=== PATIENT | female | born 1940 | race Caucasian/White ===

== ENCOUNTER 2017-09-12 14:47 | Outpatient (CLI) | payer MEDICARE, BC | END 2017-09-12 14:48 | disposition home or self-care (01) | LOC: BICULT 14:47 → MERGE 14:47 → BICULT 14:48 | PROVIDERS: ATTEND Physician Assistant | DX: R22.2 Localized swelling, mass and lump, trunk (principal) | CPT/HCPCS: 76999 ==

== ENCOUNTER 2018-01-11 15:11 | Emergency (ER) | payer MEDICARE, BC ==
--- NOTE | 2018-01-11 15:54 | RAD ---
THREE VIEWS LEFT SHOULDER: Date: 01-11-18 History: Injury to left shoulder after a fall. FINDINGS: There is evidence of a fracture involving the proximal left humerus. This fracture involves the great er tuberosity but also probably involves the left humeral neck. There is no evidence of a dislocation . The coracoclavicular and acromioclavicular distances are within normal limits. No other osseous abn ormality. IMPRESSION: Fracture involving the left greater tuberosity. There is also probable fracture extending through the neck of the left humerus. POS: [facility]
[2018-01-11] MEDS ORDERED: HYDROcodone/Acetaminophen 5/325 mg Tablet ONE (16:51)
--- NOTE | 2018-01-11 17:31 | CT ---
CT HEAD NONCONTRAST: 01/11/18 HISTORY: Fall. Head injury. FINDINGS: No comparison. There is no evidence of acute intracranial hemorrhage or infarct. Diffuse cortical atr ophy results in prominence of the CSF anterior to the frontal lobes. This is symmetric. No mass effec t or shift of midline structures. The visualized paranasal sinuses remain well aerated. IMPRESSION: No acute intracranial abnormalities are demonstrated. POS: [facility]
== END 2018-01-11 18:20 | disposition home or self-care (01) ==
LOC: ERS 15:11
DX: S42.252A Displaced fracture of greater tuberosity of left humerus, initial encounter for closed fracture (principal); E03.9 Hypothyroidism, unspecified; E78.5 Hyperlipidemia, unspecified; Z79.899 Other long term (current) drug therapy; W01.0XXA Fall on same level from slipping, tripping and stumbling without subsequent striking against object, initial encounter
CPT/HCPCS: 70450

== ENCOUNTER 2018-08-29 08:57 | Outpatient (CLI) | payer MEDICARE, BC ==
--- NOTE | 2018-08-29 10:22 | MMO ---
Bilateral MAMMO Bilat Screen [facility]. CLINICAL HISTORY: Patient is 78 years old and is seen for screening. The patient has the following family history of breast cancer: sister, at age 73. The patient has a history of bilateral Implants at age 45 - saline, bilateral Mastectomy at age 35 - benign and bilateral Implants at age 35 - silicone gel. VIEWS: The views performed were: bilateral craniocaudal with tomosynthesis; bilateral mediolateral oblique with tomosynthesis; and bilateral Implant displaced. FILMS COMPARED: The present examination has been compared to prior imaging studies performed at [facility] on 12/31/2011, 05/31/2015, 06/06/2015, 06/29/2016 and 07/01/2017. MAMMOGRAM FINDINGS: There are scattered fibroglandular densities. There are stable benign appearing calcifications seen in both breasts. There are no suspicious masses, suspicious calcifications, or new areas of architectural distortion. IMPRESSION: THERE IS NO MAMMOGRAPHIC EVIDENCE OF MALIGNANCY. A ROUTINE FOLLOW-UP MAMMOGRAM IN 1 YEAR IS RECOMMENDED. THE RESULTS OF THIS EXAM WERE SENT TO THE PATIENT. ACR BI-RADS Category 2 - Benign finding MAMMOGRAPHY NOTE: 1. A negative mammogram report should not delay a biopsy if a dominant of clinically suspicious mass is present. 2. Approximately 10% to 15% of breast cancers are not detected by mammography. 3. Adenosis and dense breasts may obscure an underlying neoplasm.
== END 2018-08-29 08:58 | disposition home or self-care (01) ==
LOC: BICMAMMO 08:57
PROVIDERS: ATTEND Family Medicine
DX: Z12.31 Encounter for screening mammogram for malignant neoplasm of breast (principal)
CPT/HCPCS: 77063; 77067

== ENCOUNTER 2019-01-02 09:07 | Outpatient (CLI) | payer MEDICARE, BC ==
--- NOTE | 2019-01-02 12:27 | MRI ---
MRI CERVICAL SPINE WITHOUT CONTRAST: COMPARISON: 10/21/2017. HISTORY: Cervical radiculopathy. Neck pain. COMPARISON: 10/21/2017. FINDINGS: Appropriate T1 marrow signal intensity of the cervical vertebrae. Cervical spine vertebral body heig ht is maintained. There is no fracture. No significant STIR hyperintensity to suggest vertebral bod y edema or ligamentous injury. Visualized brain parenchyma, cervicomedullary junction, cervical cord, and the upper thoracic cord ortega ve a normal size and signal intensity. C2-C3: No significant central canal stenosis or significant neural foraminal narrowing. C3-C4: No significant central canal stenosis or significant neural foraminal narrowing. C4-C5: Moderate loss of disk space height. Broad-based disk-osteophyte complex effaces the ventral subarachnoid space. There is mild deformity of the cervical cord, without T2 hyperintensity in the c ord. The degree of central canal stenosis is similar to the previous examination. Mild right forami nal narrowing. No uncovertebral hypertrophy. Mild left foraminal narrowing due to uncovertebral hyp ertrophy. C6-C7: There is a broad-based disk-osteophyte complex that abuts the thecal sac. Ventral subarachno id space is still maintained. Minimal flattening of the ventral cord, without cord hyperintensity. Mild central canal stenosis. Mild bilateral foraminal narrowing due to uncovertebral hypertrophy. C6-C7: No significant central canal stenosis or foraminal narrowing. C7-T1: No significant central canal stenosis or foraminal narrowing. IMPRESSION: Degenerative change of the cervical spine as described above. When compared to the previous examination, there is no significant change. POS: [facility]
== END 2019-01-02 09:08 | disposition home or self-care (01) ==
LOC: BICMRI 09:07
PROVIDERS: ATTEND Surgery
DX: M50.10 Cervical disc disorder with radiculopathy, unspecified cervical region (principal); M47.22 Other spondylosis with radiculopathy, cervical region; M48.02 Spinal stenosis, cervical region; M77.8 Other enthesopathies, not elsewhere classified
CPT/HCPCS: 72141

== ENCOUNTER 2019-09-18 09:23 | Outpatient (CLI) | payer MEDICARE, BC ==
--- NOTE | 2019-09-18 10:50 | MMO ---
Bilateral MAMMO Bilat Screen [facility]. CLINICAL HISTORY: Patient is 79 years old and is seen for screening. The patient has the following family history of breast cancer: sister, at age 73. The patient has a history of bilateral Implants at age 45 - saline, bilateral Mastectomy at age 35 - benign and bilateral Implants at age 35 - silicone gel. VIEWS: The views performed were: bilateral craniocaudal; bilateral mediolateral oblique; and bilateral Implant displaced with tomosynthesis. FILMS COMPARED: The present examination has been compared to prior imaging studies performed at [facility] on 06/06/2015, 06/29/2016, 07/01/2017 and 08/29/2018. This study has been interpreted with the assistance of computer-aided detection. MAMMOGRAM FINDINGS: There are scattered fibroglandular densities. Bilateral implants are stable. There are no suspicious masses, suspicious calcifications, or new areas of architectural distortion. IMPRESSION: THERE IS NO MAMMOGRAPHIC EVIDENCE OF MALIGNANCY. A ROUTINE FOLLOW-UP MAMMOGRAM IN 1 YEAR IS RECOMMENDED. THE RESULTS OF THIS EXAM WERE SENT TO THE PATIENT. ACR BI-RADS Category 2 - Benign finding MAMMOGRAPHY NOTE: 1. A negative mammogram report should not delay a biopsy if a dominant of clinically suspicious mass is present. 2. Approximately 10% to 15% of breast cancers are not detected by mammography. 3. Adenosis and dense breasts may obscure an underlying neoplasm. Reported by: SCOTTY BURCIAGA MD Electonically Signed: [id number]
== END 2019-09-18 09:24 | disposition home or self-care (01) ==
LOC: BICMAMMO 09:23
PROVIDERS: ATTEND Family Medicine
DX: Z12.31 Encounter for screening mammogram for malignant neoplasm of breast (principal); Z80.3 Family history of malignant neoplasm of breast; Z90.13 Acquired absence of bilateral breasts and nipples
CPT/HCPCS: 77063; 77067

== ENCOUNTER 2019-09-19 07:16 | Outpatient (CLI) | payer MEDICARE, BC ==
[2019-09-19] MEDS ORDERED: Iopamidol 370 76% 100 ML VIAL ONE (09:02)
--- NOTE | 2019-09-19 10:24 | CT ---
CT ABDOMEN AND PELVIS WITH AND WITHOUT IV CONTRAST: HISTORY: Left upper quadrant pain and fullness. ___ FINDINGS: There are no previous exams for comparison. There are bilateral peripherally calcified breast implants. An 8 mm paravesical nodule is noted. No calcified gallstones are seen. There is a 6 mm low-density lesion, too small to characterize, in th e left lobe of the liver. The spleen, pancreas, and adrenal glands are normal. No calculi are seen in the kidneys, ureters, or the urinary bladder. No hydroureteral nephrosis is n oted on either side. Postcontrast images demonstrate no evidence of renal mass. No free air, free fluid, or lymphadenopathy is seen in the abdomen or pelvis. The small bowel lops a re not abnormally dilated. There is colonic diverticulosis. The patient is post hysterectomy. There are vascular calcifications without evidence of aneurysmal dilatation of the abdominal aorta. There are degenerative changes in the spine. No abdominal mass is seen in the region of the marker placed in the left mid abdomen. No abdominal w all hernia is seen. IMPRESSION: 1. Probable small cyst in the liver. 2. No CT evidence of urinary tract calculi/obstruction or renal mass. 3. Colonic diverticulosis without diverticulitis. POS: [facility]
== END 2019-09-19 07:17 | disposition home or self-care (01) ==
LOC: BICCT 07:16
PROVIDERS: ATTEND Family Medicine
DX: R19.8 Other specified symptoms and signs involving the digestive system and abdomen (principal); K57.30 Diverticulosis of large intestine without perforation or abscess without bleeding
CPT/HCPCS: 74178; 82565; Q9967

== ENCOUNTER 2020-03-13 08:02 | Outpatient (CLI) | payer MEDICARE, BC, OTHER ==
[2020-03-13 18:20] LABS: Hemoglobin 14.4 g/dL (12.0-16.0); Mean Corpuscular HGB CONC 32.9 G/DL (32.0-36.0); Mean Corpuscular Hemoglobin 30.3 PG (27.0-33.0); Mean Platelet Volume 10.8 fl (7.4-10.4); Platelet Count 248 10x3/uL (130-400); RBC Distribution Width 13.2 % (11.5-14.5); Red Blood Cell (RBC) Count 4.76 10x6/uL (3.90-5.20); White Blood Cell (WBC) Count 7.8 10x3/uL (4.5-11.0)
[2020-03-13 18:34] LABS: Anion Gap 14 mmol/L (10-20); BUN (Urea Nitrogen) 22 mg/dL (9.8-20.1); Calc. Creatinine Clearance 0 mL/min (70-130); Calcium 9.2 mg/dL (7.8-10.44); Carbon Dioxide 27 mmol/L (23-31); Chloride 103 mmol/L (98-107); Estimated GFR-MDRD 65; Glucose 96 mg/dL (83-110); Potassium 3.7 mmol/L (3.5-5.1); Sodium 140 mmol/L (136-145)
[2020-03-13 18:37] LABS: INR-International Normal Ratio 0.9; PTT 26.7 sec (22.0-33.0); Prothrombin Time 9.8 sec (9.5-12.1)
[2020-03-14 11:54] LABS: SARS-CoV-2 MS2 Positive; SARS-CoV-2 N Gene Negative; SARS-CoV-2 S Gene Negative; SARS-CoV-2 by NAA Not Detected (NotDetected); SARS-CoV-2 orf1ab Negative
== END 2020-03-13 08:03 | disposition home or self-care (01) ==
LOC: LABBT 08:02
PROVIDERS: ATTEND Surgery
DX: Z01.818 Encounter for other preprocedural examination (principal); M50.10 Cervical disc disorder with radiculopathy, unspecified cervical region; M48.02 Spinal stenosis, cervical region; Z20.828 Contact with and (suspected) exposure to other viral communicable diseases
CPT/HCPCS: 80048; 85027; 85610; 85730; 93005; U0003; 87635; 93010

== ENCOUNTER 2020-03-18 10:06 | Day surgery (SDC) | payer MEDICARE, BC ==
[2020-03-17 11:59] VITALS: BMI 25.7
[2020-03-18] MEDS ORDERED: Promethazine HCl 25 MG/ML VIAL IM PRN (10:33)
[2020-03-18] MEDS ORDERED: HYDROmorphone 2 MG/ML VIAL SLOW IVP PRN (10:33)
[2020-03-18] MEDS ORDERED: Promethazine HCl 25 MG/ML VIAL SLOW IVP PRN (10:33)
[2020-03-18] MEDS ORDERED: Ondansetron HCl/PF 4 MG/2 ML Vial IVP PRN (10:33)
[2020-03-18] MEDS ORDERED: Thrombin 5000 UNITS/5 ML VIAL ONE (10:41)
[2020-03-18] MEDS ORDERED: Fentanyl 100 MCG/2 ML VIAL ONE ×4 (11:51→16:15)
[2020-03-18] MEDS ORDERED: Midazolam HCl 2 mg/2 ml Vial ONE (11:51)
[2020-03-18] MEDS ORDERED: PROPOFOL 200 MG/20 ML VIAL ONE (12:51)
[2020-03-18] MEDS ORDERED: EPHEDRINE 25 MG/5 ML SYRINGE ONE (12:51)
[2020-03-18] MEDS ORDERED: PHENYLEPHRINE-NS 100 MCG/ML 10 ML SYRINGE ONE (12:51)
[2020-03-18] MEDS ORDERED: Ondansetron PF 4 MG/2 ML Vial ONE (12:51)
[2020-03-18] MEDS ORDERED: Dexamethasone 20 MG/5 ML VIAL ONE (12:51)
[2020-03-18] MEDS ORDERED: Glycopyrrolate 0.2 MG/ML 5 ML SYRINGE ONE ×2 (12:51)
[2020-03-18] MEDS ORDERED: Rocuronium Bromide 10 MG/ML (10ML VIAL) ONE (12:51)
[2020-03-18] MEDS ORDERED: Lidocaine 1% PF 5 ML VIAL ONE (12:51)
[2020-03-18] MEDS ORDERED: Bisacodyl 10 MG SUPP PR PRN (14:39)
[2020-03-18] MEDS ORDERED: Milk Of Magnesia 30 ML UDCUP PO PRN (14:39)
[2020-03-18] MEDS ORDERED: Morphine 2 MG/ML VIAL SLOW IVP PRN (14:39)
[2020-03-18] MEDS ORDERED: traMADol HCl 50 MG TAB PO PRN (14:39)
[2020-03-18] MEDS ORDERED: Acetaminophen 325 MG TAB PO PRN (14:39)
[2020-03-18] MEDS ORDERED: Ondansetron PF 4 MG/2 ML Vial IVP PRN (14:39)
[2020-03-18] MEDS ORDERED: tiZANidine HCl 4 MG TAB PO PRN (14:39)
[2020-03-18] MEDS ORDERED: HYDROcodone/Acetaminophen 7.5/325 mg Tablet PO PRN (14:39)
[2020-03-18] MEDS ORDERED: Chloraseptic Spray 180 ml Bottle PO PRN (14:42)
[2020-03-18] MEDS ORDERED: Cepastat Lozenges 1 LOZ PO PRN (14:42)
[2020-03-18] MEDS ORDERED: HYDROmorphone 0.5 MG/0.5 ML SYRINGE ONE (14:48)
[2020-03-18] MEDS ORDERED: CEFAZOLIN 2 GM in Premix Bag 1 BAG IVPB SCH (15:00)
[2020-03-18] MEDS ORDERED: tiZANidine HCl 4 MG TAB ONE (15:28)
[2020-03-18] MEDS: Sodium Chloride 0.9% 1,000 ML IV SCH (18:42)
[2020-03-18] MEDS: CEFAZOLIN 2 GM in Premix Bag 1 BAG IVPB SCH (20:29)
[2020-03-18] MEDS ORDERED: Rosuvastatin 10 MG TAB PO SCH (21:00)
[2020-03-19] MEDS ORDERED: Sodium Chloride For Inhalation 0.9% 3 ML NEB ONE (00:14)
[2020-03-19] MEDS: Acetaminophen/Codeine 30-300mg Tablet PO PRN ×2 (03:23→10:32)
[2020-03-19] MEDS: CEFAZOLIN 2 GM in Premix Bag 1 BAG IVPB SCH (03:25)
[2020-03-19] MEDS: Sodium Chloride 0.9% 1,000 ML IV SCH (05:14)
[2020-03-19] MEDS ORDERED: Levothyroxine Sodium 75 MCG TAB PO SCH (06:00)
--- NOTE | 2020-03-19 08:55 | PRG ---
DATE OF SERVICE: Ms. Mckay is doing well postoperative day #1 from C4 through C6 ACDF. Her left upper extremity pain has improved. She has mild dysphonia, but is tolerating orals. Her drain output is minimal. Her strength is good. We went over do's and don'ts in the postoperative period. She will be discharged. Job ID: [id number]
[2020-03-19] MEDS ORDERED: Cholecalciferol 1,000 UNITS (25 MCG) TAB PO SCH (09:00)
[2020-03-19] MEDS ORDERED: Estradiol 1 MG TAB PO SCH (09:00)
[2020-03-19] MEDS ORDERED: Cyanocobalamin (Vitamin B-12) 1,000 MCG TAB PO SCH (09:00)
[2020-03-19] MEDS ORDERED: Liothyronine Sodium 5 MCG TAB PO SCH (09:00)
[2020-03-19 13:15] VITALS: BP 142/79; TEMP 98.7
--- NOTE | 2020-03-20 11:13 | OP ---
DATE OF PROCEDURE: 03/18/2020 GRIPPER MACHINE OPERATOR: Malgorzata Torres PA-C PREPROCEDURE DIAGNOSIS: C5 and C6 radiculopathy. POSTPROCEDURE DIAGNOSIS: C5 and C6 radiculopathy. PROCEDURES PERFORMED: 1. Anterior C4-C5 and C5-C6 diskectomies for decompression of spinal cord in C5 and C6 nerve roots bilaterally. 2. Placement of interbody spacer C4-C5 and C5-C6 packed with local bone autograft obtained from same incision and allograft for arthrodesis (spacer separate from plate). 3. Anterior cervical plate and screw fixation, C4, C5, C6. 4. Use of operative microscope for microdissection. DESCRIPTION OF PROCEDURE: After informed consent was obtained from the patient, the patient was brought to the OR. Proper patient, pause, and identification were carried out. She was placed under excellent general endotracheal anesthesia and positioned supine on the OR table. All appropriate points were padded. We identified the right donald that would allow for approach to the anterior C4, C5, and C6 segments. This region was sterilely cleansed, prepared, and draped. Proper patient, pause, and identification were carried out. The wound was then opened with a combination of sharp, monopolar, and blunt dissection. We proceeded medial to the larynx, pharynx, and medial to the right carotid sheath. We identified the prevertebral layer of deep cervical fascia. Localization film confirmed our area of interest. We then performed anterior C4-C5 distraction. The microscope was brought in for microdissection. We opened up the C4-C5 segment and diskectomy was performed with excellent decompression of the common dural tube and bilateral C5 nerve roots. We then prepared the endplates for placement of interbody spacer, packed with local bone autograft obtained from same incision and allograft at C4-C5 for arthrodesis initiation. The distraction was then released and the same procedure was done at C5-C6 with diskectomy and decompression of spinal cord and bilateral C6 nerve roots. We then prepared the endplates and placed an interbody spacer with appropriate dimension at C5-C6 for arthrodesis initiation. The microscope was then removed. Anterior cervical plate and screw fixation at C4, C5, C6 then occurred with final tightening, copious irrigation, maximizing hemostasis. The wound was then closed in anatomic layers over drain. The patient then emerged from anesthesia. Job ID: [id number]
== END 2020-03-19 12:27 | disposition home or self-care (01) ==
LOC: SDC 10:06 → SURG B 14:41 → SDC 03-19 12:27
PROVIDERS: ATTEND Surgery
PROC: 0RG20A0 Fusion of 2 or more Cervical Vertebral Joints with Interbody Fusion Device, Anterior Approach, Anterior Column, Open Approach (ICD-10-PCS; principal; 2020-03-18)
PROC: 0RT30ZZ Resection of Cervical Vertebral Disc, Open Approach (ICD-10-PCS; 2020-03-18)
DX: M50.122 Cervical disc disorder at C5-C6 level with radiculopathy (principal); M48.02 Spinal stenosis, cervical region; Z79.899 Other long term (current) drug therapy; Z88.8 Allergy status to other drugs, medicaments and biological substances
CPT/HCPCS: 20930; 20936; 22551; 22552; 22853 ×2; 76000; C1713 ×2; C1776; J0690; J1100; J1170; J2250; J2405; J2704; J3010